=== PATIENT | male | born 1985 | race Caucasian/White ===

== ENCOUNTER 2024-01-04 11:31 | Emergency (ER) | payer OTHER ==
[~2024-01-04] VITALS: Ht 185.4 cm; Wt 93.0 kg
[2024-01-04 11:56] VITALS: BP_SYST 140; PULSE 87; RESP 18; TEMP 98; O2SAT 95
[2024-01-04] MEDS ORDERED: IBUP-1971 PO (13:02)
[2024-01-04 13:07] VITALS: BP_SYST 139; PULSE 82; RESP 17; TEMP 98.1; O2SAT 97
== END 2024-01-04 13:11 | disposition home or self-care (01) ==
LOC: SED 11:31
DX: S67.193A Crushing injury of left middle finger, initial encounter (principal); S67.195A Crushing injury of left ring finger, initial encounter; Z79.899 Other long term (current) drug therapy; W23.0XXA Caught, crushed, jammed, or pinched between moving objects, initial encounter; Y93.89 Activity, other specified; Y92.89 Other specified places as the place of occurrence of the external cause; Y99.8 Other external cause status
CPT/HCPCS: 73140; 99283